=== PATIENT | female | born 1955 | race Caucasian/White ===

== ENCOUNTER 2019-02-24 12:39 | Emergency (ER) | payer OTHER, MEDICARE ==
[2019-02-24] MEDS ORDERED: LIDOCAINE 2% MPF 5 ML VIAL ONE (15:46)
[2019-02-24] MEDS ORDERED: LIDOCAINE 1% MPF 5 ML VIAL ONE (15:47)
--- NOTE | 2019-02-24 17:27 | EDPHYS ---
Physician Documentation [facility] Name: Mariangel Ojeda Age: 64 yrs Sex: Female : 1955 Arrival Date: 02/24/2019 Time: 12:44 Bed 27 Private MD: ED Physician Gomez Hernandez HPI: 02/24 14:41 This 64 yrs old Female presents to ER via Ambulatory with complaints of jmm Toothache. 14:41 The patient presents with swelling. Onset: The symptoms/episode began/occurred jmm gradually, 2 day(s) ago. Duration: The symptoms are continuous. Modifying factors: The symptoms are alleviated by over the counter medications, Tylenol, NSAIDs, the symptoms are aggravated by food. Associated signs and symptoms: Pertinent positives: pain, swelling. This is a 64 year old female that presents to the ED with complaints of right sided facial swelling and dental pain beginning approx 2 days ago. Patient is currently taking erythromycin with little relief. Denies fever but complains of lightheadedness. . Historical: - Allergies: 12:51 PENICILLINS; hb 12:51 Clindamycin; hb - Home Meds: 12:51 erythromycin 250 mg Oral tab 1 tab 4 times per day [Active]; hb - Immunization history:: Adult Immunizations up to date. - Social history:: Smoking status: Patient/guardian denies using tobacco. - Ebola Screening: : No symptoms or risks identified at this time. ROS: 14:41 Constitutional: Negative for fever, chills, and weight loss. jmm 14:41 Cardiovascular: Negative for chest pain, palpitations, and edema, Respiratory: Negative for shortness of breath, cough, wheezing, and pleuritic chest pain, Abdomen/GI: Negative for abdominal pain, nausea, vomiting, diarrhea, and constipation. 14:41 ENT: Positive for dental pain. 14:41 Neuro: Positive for lightheadedness. 14:41 Psych: Positive for 14:41 All other systems are negative. Exam: 14:41 Constitutional: This is a well developed, well nourished patient who is awake, alert, jmm and in no acute distress. 14:41 Neck: Trachea midline, Supple Chest/axilla: Normal chest wall appearance and motion. Cardiovascular: Regular rate and rhythm. No edema appreciated Respiratory: Normal respirations, no respiratory distress appreciated 14:41 Back: Normal ROM Skin: General appearance color normal MS/ Extremity: Moves all extremities, no obvious deformities appreciated, no edema noted to the lower extremities Neuro: Awake and alert, normal gait Psych: Behavior is normal, Mood is normal, Patient is cooperative and pleasant 14:41 Head/face: right sided swelling. 14:41 ENT: Dental exam: gum swelling, that is moderate, specifically in the upper right first molar (#3) and upper right second bicuspid (#4). Vital Signs: 12:51 BP 140 / 60; Pulse 90; Resp 16; Temp 98.2; Pulse Ox 100% on R/A; Weight 86.18 kg; hb Height 5 ft. 7 in. (170.18 cm); Pain 9/10; 15:00 BP 125 / 64; Pulse 76; Resp 18; Pulse Ox 97% on R/A; aj1 12:51 Body Mass Index 29.76 (86.18 kg, 170.18 cm) hb MDM: 14:41 Patient medically screened. [facility] 17:25 Data reviewed: vital signs, nurses notes. Counseling: I had a detailed discussion with jocelyne the patient and/or guardian regarding: the historical points, exam findings, and any diagnostic results supporting the discharge/admit diagnosis, the need for outpatient follow up, to return to the emergency department if symptoms worsen or persist or if there are any questions or concerns that arise at home. ED course: Patient advised to follow up with oral surgery. Patient was otherwise given strict return precautions. Patient understood and agrees with the plan of care. . Administered Medications: No medications were administered Disposition: 02/24/19 17:26 Discharged to Home. Impression: Dental Abscess. - Condition is Stable. - Discharge Instructions: Dental Abscess. - Prescriptions for Peridex 0.12 % Mucous Membrane mouthwash - place 15 milliliter by MUCOUS MEMBRANE route 2 times per day after brushing teeth, swish in mouth for 30 seconds then spit out; 1 bottle. Cephalexin 500 mg Oral Capsule - take 1 capsule by ORAL route every 6 hours for 10 days; 40 capsule. Flagyl 500 mg Oral Tablet - take 1 tablet by ORAL route every 6 hours for 10 days; 40 tablet. - Medication Reconciliation Form, Thank You Letter, Antibiotic Education, Prescription Opioid Use form. - Follow up: Rylan Brooks DDS; When: 2 - 3 days; Reason: Recheck today's complaints, Continuance of care, Re-evaluation by your physician. Addendum: 02/26/2019 07:53 Co-signature as Attending Physician, Gomez Hernandez MD I agree with the assessment and c suarez plan of care. Signatures: Margaret Muniz RN RN aj1 Gomez Hernandez MD MD cha Mickail, Joel, PA PA reenam Beverley Lizama RN RN Corrections: (The following items were deleted from the chart) 02/24 17:43 17:26 02/24/2019 17:26 Discharged to Home. Impression: Dental Abscess. Condition is aj1 Stable. Forms are Medication Reconciliation Form, Thank You Letter, Antibiotic Education, Prescription Opioid Use. Follow up: Rylan Brooks; When: 2 - 3 days; Reason: Recheck today's complaints, Continuance of care, Re-evaluation by your physician. [facility]
--- NOTE | 2019-02-24 17:27 | ER ---
Nurse's Notes [facility] Name: Mariangel Ojeda Age: 64 yrs Sex: Female : 1955 Arrival Date: 02/24/2019 Time: 12:44 Bed 27 Private MD: Diagnosis: Dental Abscess Presentation: 02/24 12:48 Presenting complaint: Right upper molar pain x 3 days,malaise, dizziness and right hb sided facial pain x 2 days. Transition of care: patient was not received from another setting of care. Onset of symptoms was February 22, 2019. Risk Assessment: Do you want to hurt yourself or someone else? Patient reports no desire to harm self or others. Initial Sepsis Screen: Does the patient meet any 2 criteria? No. Patient's initial sepsis screen is negative. Does the patient have a suspected source of infection? No. Patient's initial sepsis screen is negative. Care prior to arrival: None. 12:48 Method Of Arrival: Ambulatory hb 12:48 Acuity: MELONY 3 hb Historical: - Allergies: 12:51 PENICILLINS; hb 12:51 Clindamycin; hb - Home Meds: 12:51 erythromycin 250 mg Oral tab 1 tab 4 times per day [Active]; hb - Immunization history:: Adult Immunizations up to date. - Social history:: Smoking status: Patient/guardian denies using tobacco. - Ebola Screening: : No symptoms or risks identified at this time. Screenin:33 Abuse screen: Denies threats or abuse. Denies injuries from another. Nutritional aj1 screening: No deficits noted. Tuberculosis screening: No symptoms or risk factors identified. 17:42 Fall Risk None identified. aj1 Assessment: 15:00 General: Appears in no apparent distress. comfortable, Behavior is calm, cooperative, aj1 appropriate for age. Pain: Complains of pain in right cheek. Neuro: Level of Consciousness is awake, alert, obeys commands, Oriented to person, place, time, situation. Cardiovascular: Patient's skin is warm and dry. Respiratory: Airway is patent Respiratory effort is even, unlabored, Respiratory pattern is regular, symmetrical. GI: No signs and/or symptoms were reported involving the gastrointestinal system. : No signs and/or symptoms were reported regarding the genitourinary system. EENT: Reports she started having tooth pain, and she had some antibiotics that she travels with, but it has not been helping and she started having swelling in the right side of her face. She is out of town, so she did not want the infection to spread and get worse. Derm: No signs and/or symptoms reported regarding the dermatologic system. Skin is pink, warm \T\ dry. normal. Musculoskeletal: No signs and/or symptoms reported regarding the musculoskeletal system. Circulation, motion, and sensation intact. 16:00 Reassessment: Patient appears in no apparent distress at this time. No changes from [facility] previously documented assessment. Patient and/or family updated on plan of care and expected duration. Pain level reassessed. Patient is alert, oriented x 3, equal unlabored respirations, skin warm/dry/pink. 17:10 Reassessment: Dr. Hernandez at bedside to evaluate patient. [facility] Vital Signs: 12:51 BP 140 / 60; Pulse 90; Resp 16; Temp 98.2; Pulse Ox 100% on R/A; Weight 86.18 kg; hb Height 5 ft. 7 in. (170.18 cm); Pain 9/10; 15:00 BP 125 / 64; Pulse 76; Resp 18; Pulse Ox 97% on R/A; aj1 12:51 Body Mass Index 29.76 (86.18 kg, 170.18 cm) hb ED Course: 12:44 Patient arrived in ED. as 12:50 Triage completed. hb 12:51 Arm band placed on. 14:39 Marco Antonio Villareal PA is PHCP. [facility] 14:39 Gomez Hernandez MD is Attending Physician. [facility] 15:27 Margaret Muniz, RN is Primary Nurse. [facility] 15:33 Patient has correct armband on for positive identification. Bed in low position. Call [facility] light in reach. 15:33 No provider procedures requiring assistance completed. [facility] 17:25 Rylan Brooks DDS is Referral Physician. [facility] 17:42 Patient did not have IV access during this emergency room visit. [facility] Administered Medications: No medications were administered Outcome: 17:26 Discharge ordered by . [facility] 17:42 Discharged to home ambulatory. [facility] 17:42 Condition: good 17:42 Discharge instructions given to patient, Instructed on discharge instructions, follow up and referral plans. medication usage, Demonstrated understanding of instructions, follow-up care, medications, Prescriptions given X 3, Discharge instructions given by KERI Barahona 17:43 Patient left the ED. aj1 Signatures: Margaret Muniz RN RN aj1 Marco Antonio Villareal PA PA jmm Martinez, Amelia as Beverley Lizama, KERI RN hb
[2019-02-24 21:34] VITALS: TEMP 98.2
[2019-02-24 21:35] VITALS: BP 125/64; O2SAT 97
== END 2019-02-24 17:43 | disposition home or self-care (01) ==
LOC: ER 12:39
DX: K04.7 Periapical abscess without sinus (principal); Z88.0 Allergy status to penicillin; Z88.3 Allergy status to other anti-infective agents
CPT/HCPCS: 99282